=== PATIENT | male | born 1965 | race Caucasian/White ===

== ENCOUNTER → 2017-07-31 17:23 | Outpatient (CLI) | payer MEDICARE, MEDICAID ==
[~2017-07-31 17:23] MED LIST: BACLOFEN20 M1 PO; ELIQUIS2.5 MG PO; HYDROCODONE-APA1 TAB PO; LIPITOR10 MG PO; OMEPRAZOLE40 MG PO
[2017-08-25 12:56] VITALS: BMI 26.6
== END | disposition home or self-care (01) ==
LOC: D.LABREF 17:23
DX: Z11.8 Encounter for screening for other infectious and parasitic diseases (principal)

== ENCOUNTER 2017-08-20 09:17 | Inpatient (IN) | payer MEDICARE, MEDICAID ==
[~2017-08-20] VITALS: Ht 172.7 cm; Wt 79.5 kg
--- NOTE | ~2017-08-20 | OP ---
PATIENT NAME: AILEEN BAUTISTA MEDICAL RECORD: [id number] :69 LOCATION:D[id number] ADMISSION DATE:08/25/17 SURGEON: FREDY CORONA MD DATE OF OPERATION: 08/25/2017 PREOPERATIVE DIAGNOSIS: Avascular necrosis of the right medial femoral condyle. POSTOPERATIVE DIAGNOSIS: Avascular necrosis of the right medial femoral condyle. PROCEDURE: Right total knee arthroplasty. SURGEON: Fredy Corona MD ANESTHESIA: General. INTRAOPERATIVE COMPLICATIONS: None. SUMMARY OF PATHOLOGIC FINDINGS: Unfortunately, the patient had avascular necrosis of the entire medial femoral condyle. It was too big for autograft or osteochondral allograft as it wrapped around to the posterior femoral condyle and was 10 mm deep at its greatest depth. IMPLANTS USED: Triathlon total knee arthroplasty system. Press fit size 6 distal femur, size 11 mm polyethylene insert, size 6 tibial baseplate. No patellar resurfacing was required. OPERATIVE SUMMARY IN DETAIL: After obtaining the appropriate preoperative orthopedic surgery consent as well as anesthetic consultation, evaluation, and clearance, the patient was brought to the operating room and placed on the operating table in supine position. After general laryngeal mask airway was administered, tourniquet was placed about the proximal aspect of the right lower extremity. Right lower extremity was then prepped and draped in routine sterile fashion. The leg was elevated and exsanguinated and tourniquet was inflated to 350 mmHg. Routine midline incision was taken down for paramedian arthrotomy. Patella was everted. Findings were noted. The large chondral flap was peeled away and the depths of the avascular necrosis was measured. At this point, decision made to carry on with total knee arthroplasty. Soft tissue excision was done in the usual fashion. Distal intramedullary guide hole was created for intramedullary guided cut. Distal femoral cuts were made at 10 mm of depth to try and cut away all of the area of avascular necrosis. At this point, the entire proximal tibia was visualized. Proximal tibial cut was made. Measurements were taken. Distal femoral chamfer cuts were made. Trials were put into place corresponding to the above-mentioned final implants. They were taken through range of motion and found to be stable in all planes. Final distal femoral preparation, proximal tibial preparations were made. The wound was copiously irrigated at this point and multiple points during the case. Implants were then put into place with good fit and fill, taken through range of motion and found to be stable in all planes. After final irrigation, Vitagel from [employer] was put into place and that is a PRP thrombin combination. Paramedian arthrotomy was closed with #2 Ethibond followed by #1 Vicryl, 2-0 Vicryl and skin nick. Sterile dressings were applied. The patient was awakened and taken to the recovery room in stable condition. All final needle and sponge counts were correct. OPERATIVE REPORT [id number] AILEEN BAUTISTA TRANSINT:[id number] Voice Confirmation ID: [id number] DOCUMENT ID: [id number] CJ OLIVEROS, FREDY REYNOLDS at 1526 CC: [id number] DICTATION DATE: 08/25/17 1138 NEWS AGENT: 08/25/17 1221 ADM IN [facility] [address] [place] [address]
[~2017-08-20 09:17] MED LIST changes: -ELIQUIS2.5 MG PO; -HYDROCODONE-APA1 TAB PO
[2017-08-20 11:58] LABS: APPEARANCE CLEAR (CLEAR); BASOPHILS 0.4 % (0-2); BILIRUBIN NEGATIVE (NEGATIVE); COLOR YELLOW (YELLOW); EOSINOPHILS 1.4 % (0-7); GLUCOSE NEGATIVE (NEGATIVE); HEMATOCRIT 43.8 % (42.0-54.0); HEMOGLOBIN 15.1 g/dL (13.5-17.5); IMMATURE GRANULOCYTES 0.2 % (0-5); KETONE NEGATIVE (NEGATIVE); LYMPHOCYTES 22.1 % (15-50); MCH 31.3 pg (26.0-34.0); MCHC 34.5 g/dL (31.0-37.0); MCV 90.9 fL (80.0-100.0); MEAN PLATELET VOLUME 10.6 fL (7.4-10.4); MONOCYTES 6.8 % (2-11); NEUTROPHILS 69.1 % (40-80); NITRITE NEGATIVE (NEGATIVE); PLATELET COUNT 377 10x3/uL (130-400); PROTEIN NEGATIVE (NEGATIVE); RBC 4.82 10x6/uL (4.20-6.10); RDW 12.8 % (11.5-14.5); UROBILINOGEN NORMAL (NORMAL); WBC 10.5 10x3/uL (4.8-10.8)
[2017-08-20 11:59] LABS: INR 0.98 (0.85-1.17); PROTIME 12.6 SECONDS (11.6-15.0)
[2017-08-20 12:06] LABS: CALC OSMOLALITY 279 mosm/kg (275-300); CARBON DIOXIDE 28.1 mmol/L (21.0-32.0); CHLORIDE - SERUM 102 mmol/L (98-107); CREATININE - SERUM 1.1 mg/dL (0.6-1.3); GLUCOSE 93 mg/dL (74-106); POTASSIUM - SERUM 3.8 mmol/L (3.5-5.1); SODIUM 139 mmol/L (136-145); UREA NITROGEN 18 mg/dL (7-18); eGFR NON AFRICAN AMERICAN 75 mL/min (90-120)
[2017-08-25] VITALS (11 sets, daily range): BP systolic 115–135; BP diastolic 66–90; Ht 172.7 cm; Wt 79.5 kg
[2017-08-26 05:18] VITALS: BP 124/84
[2017-08-26 05:20] LABS: HEMATOCRIT 39.7 % (42.0-54.0); HEMOGLOBIN 13.5 g/dL (13.5-17.5); MCH 30.5 pg (26.0-34.0); MCV 89.8 fL (80.0-100.0); RBC 4.42 10x6/uL (4.20-6.10); RDW 13.2 % (11.5-14.5); WBC 19.2 10x3/uL (4.8-10.8)
[2017-08-26 08:55] VITALS: BP 127/76
[2017-08-26 12:48] VITALS: BP 123/78
[2017-08-26 21:26] VITALS: BP 120/75
[2017-08-27 04:47] VITALS: BP 138/74
[2017-08-27 05:57] LABS: HEMATOCRIT 39.5 % (42.0-54.0); HEMOGLOBIN 13.4 g/dL (13.5-17.5); MCH 30.7 pg (26.0-34.0); MCHC 33.9 g/dL (31.0-37.0); MCV 90.6 fL (80.0-100.0); MEAN PLATELET VOLUME 11.3 fL (7.4-10.4); RBC 4.36 10x6/uL (4.20-6.10); RDW 13.5 % (11.5-14.5); WBC 15.8 10x3/uL (4.8-10.8)
[2017-08-27 08:03] VITALS: BP 129/88
[2017-08-27 12:35] VITALS: BP 141/83
[2017-08-27 15:56] VITALS: BP 130/82
[2017-08-27 21:41] VITALS: BP 121/76
[2017-08-28 02:35] VITALS: BP 121/77
[2017-08-28 06:20] VITALS: BP 130/76
[2017-08-28] MEDS ORDERED: ELIQUIS2.5 MG PO (07:24)
[2017-08-28] MEDS ORDERED: HYDROCODONE-APA1 TAB PO (07:24)
[2017-08-28 09:07] VITALS: BP 116/78
== END 2017-08-28 10:20 | DRG 470 ==
LOC: D.SDCHOLD 09:17 → D.MS 08-25 07:00 → D.SDCHOLD 08-25 09:45 → D.MS 08-25 12:22
PROVIDERS: Orthopaedic Surgery
PROC: 0SRC0JA Replacement of Right Knee Joint with Synthetic Substitute, Uncemented, Open Approach (ICD-10-PCS; principal; 2017-08-25 09:45)
DX: M87.9 Osteonecrosis, unspecified (principal); M21.961 Unspecified acquired deformity of right lower leg; F17.200 Nicotine dependence, unspecified, uncomplicated

== ENCOUNTER → 2020-01-19 09:11 | Outpatient (CLI) | payer MEDICARE, MEDICAID ==
[2017-08-25 12:56] VITALS: BMI 26.6
[~2020-01-19 09:11] MED LIST changes: +ELIQUIS2.5 MG PO; +HYDROCODONE-APA1 TAB PO
== END | disposition home or self-care (01) ==
LOC: D.HCCARDIO 09:11
PROVIDERS: ATTEND Internal Medicine Cardiovascular Disease
DX: I20.9 Angina pectoris, unspecified (principal)

== ENCOUNTER 2020-02-09 10:45 | Day surgery (SDC) | payer MEDICARE, MEDICAID ==
[~2020-02-09] VITALS: Ht 172.7 cm; Wt 79.9 kg
--- NOTE | ~2020-02-09 | HEMODYNAMI ---
PATIENT:AILEEN BAUTISTA MEDICAL RECORD: [id number] : 69 LOCATION:[facility]VE ADMISSION DATE: 02/09/20 Generatedon:02/09/202013:08 Patient name: AILEEN BAUTISTA Patient #: [id number] SSN: [id number] : 1965 Date of study: 02/09/2020 Page: Of Hemodynamic Procedure Report Patient Data Patient Demographics First Name: AILEEN Gender: Male Last Name: MICHELE : 1965 Middle Initial: A Age: 54 year(s) Patient #: [id number] Race: SSN: [id number] Additional ID: [id number] Contact details Address: [address] [place] [address] State: [place] City: [place] Zip code: [address] Past Medical History Allergies: No known allergies Admission Admission Data Admission Date: 02/09/2020 Admission Time: 10:45 Arrival Date: 02/09/2020 Arrival Time: 0:00 Height (in.): 68.11 BSA: 1.94 (m2) Height (cm.): 173 BMI: 26.73 (kg/m2) Weight (lbs.): 176.37 Weight (kg.): 80 Lab Results Lab Result Date: 02/09/2020 Lab Result Time: 0:00 Biochemistry Name Units Result Min Max BUN mg/dl 18 --(---*)-- 7 18 Creatinine mg/dl 1 --(--*-)-- 0.6 1.3 eGFR ml/min 82.40334 -*(----)-- 90 120 NONAFRICAN CBC Name Units Result Min Max Hematocrit % 44.4 --(*---)-- 42 54 Hemoglobin g/dl 15.2 --(-*--)-- 13.5 17.5 Procedure Procedure Types Cath Procedure Diagnostic Procedure [facility] LH w/Coronaries Sedation Charges Moderate Sedation 10-24 minutes Procedure Description Procedure Date Procedure Date: 02/09/2020 Procedure Start Time: 12:52 Procedure End Time: 13:04 Procedure Staff Name Function Santino Jerome MD Performing Physician Barby Quintero RT Monitor Karyna Carver RT Scrub Enrique Buckner RN Nurse Indication Angina Procedure Data Cath Procedure Fluoroscopy Diagnostic fluoroscopy Total fluoroscopy Time: 1.6 time: 1.6 min min Diagnostic fluoroscopy Total fluoroscopy dose: 463 dose: 463 mGy mGy Contrast Material Contrast Material Type Amount (ml) Isovue 300 50 Entry Location Entry Primary Successful Side Size Upsize Upsize Entry Closure Peters ccessful Closure Location (Fr) 1 (Fr) 2 (Fr) Remarks Device Remarks Radial Right 6 Fr Mechanical artery Short Compression Estimated blood loss: 5 ml Diagnostic catheters Device Type Used For End Catheter Placement DIAGNOSTIC [place] 110cm 5 Procedure Fr catheter ([id number]) Procedure Complications No complications Procedure Medications Medication Administration Route Dosage Oxygen etCO2 Nasal cannula 2 l/min Lidocaine 2% added to field 20 Heparin Flush Bag added to field 2 bags (1000units/500ml NS) 0.9% NaCl I.V. 100 ml/hr Versed I.V. 1 mg Fentanyl I.V. 50 mcg Versed I.V. 1 mg Fentanyl I.V. 50 mcg Radial Cocktail I.A. 1 syringe (Verapamil 2mg/Nitro 400mcg/Heparin 1500units) Versed I.V. 1 mg Hemodynamics Rest BSA: 1.94 (m2) HGB: 15.2 (g/dl) O2 Consumption: Estimated: 235.78 (ml/min) O2 Co nsumption indexed: Estimated:121.54 (ml/min/m) Heart Rate: 76 (bpm) Pressure Samples Time Site Value (mmHg) Purpose Heart Use Rate(bpm) 12:56 LV 110/-17,0 Snapshot 86 12:56 LV 105/1,-3 Snapshot 115 Gradients Valve Time Site Site Mean SEP/DFP Peak To Heart Use 1 2 (mmHg) (sec/min) Peak Rate (mmHg) (bpm) Aortic 12:56 LV AO 64 Snapshots Pre Cath Intra NCS Post Cath Vital Signs Time Heart Resp SPO2 etCO2 NIBP Rhythm Pain Sedation Rate (ipm) (%) (mmHg) (mmHg) Status Level (bpm) 12:40:59 76 13 92 35.3 116/66(89) NSR 0 (11) 10(A) , No pain 12:45:11 64 16 94 34.5 115/72(88) NSR 0 (11) 10(A) , No pain 12:49:23 66 16 95 34.5 113/73(83) NSR 0 (11) 9(A) , No pain 12:53:35 71 16 94 36 112/69(88) NSR 0 (11) 9(A) , No pain 12:58:38 72 15 93 31.5 103/67(92) NSR 0 (11) 9(A) , No pain 13:02:48 76 17 94 33.8 116/65(87) NSR 0 (11) 10(A) , No pain Medications Time Medication Route Dose Verified Delivered Reason Notes Effectiveness by by 12:40:25 Oxygen etCO2 2 l/min Santino Buffie used for Nasal Justus Buckner RN procedure cannula 12:42:10 Versed I.V. 1 mg Santino Buffie for sedation Justus Buckner RN 12:42:19 Fentanyl I.V. 50 mcg Santino Buffie for sedation Justus Buckner RN 12:43:31 Lidocaine 2% added 20ml Santino Santino for local to vial Justus Jerome MD anesthetic field 12:43:38 Heparin Flush added 2 bags Santino Santino used for Bag to Justus Jerome MD procedure (1000units/500ml field NS) 12:43:47 0.9% NaCl I.V. 100 Santino Buffie Per ml/hr Justus Buckner RN physician 12:47:51 Versed I.V. 1 mg Santino Buffie for sedation Justus Buckner RN 12:47:54 Fentanyl I.V. 50 mcg Santino Buffie for sedation Justus Buckner RN 12:56:05 Radial Cocktail I.A. 1 Santino Santino for (Verapamil syringe Justus Jerome MD vasodilation 2mg/Nitro 400mcg/Heparin 1500units) 12:56:19 Versed I.V. 1 mg Santino Santino for sedation Justus Jerome MD Procedure Log Time Note 12:07:55 Arrival Date: 02/09/2020 12:00:00 AM 12:07:59 Patient Height : 68.11 inches 12:08:04 Patient Weight : 176.37 lbs 12:10:55 Lab Result : Creatinine 1 mg/dl 12:10:55 Lab Result : BUN 18 mg/dl 12: Lab Result : eGFR NONAFRICAN 82.71780 ml/min 12: Lab Result : Hematocrit 44.4 % 12: Lab Result : Hemoglobin 15.2 g/dl 12:24:59 Enrique Buckner RN sent for patient. Start room use. 12:27:23 Procedure Status Elective Heart Cath (OP). 12:27:26 Time tracking: Regular hours (M-F 7:00 - 5:00) 12:28:43 Indication : Angina 12::54 Plan of Care:Hemodynamics will remain stable., Cardiac rhythm will remain stable., Comfort level will be maintained., Respiratory function will remain adequate., Patient/ family verbilizes understanding of procedure., Procedure tolerated without complication., Recovers from procedure without complications.. 12:29:35 Patient received from Pre/Post Procedure Room to CCL 1 Alert and oriented. Tansferred to table in Supine position. 12:29:38 Warm blankets applied, and salena hugger turned on for patient comfort. 12:29:39 Correct patient and procedure confirmed by team. 12:29:40 ECG and BP/O2 sat monitors applied to patient. 12:33:25 H&P Date Dictated: 01/11/2020 Within 30 days and on chart., H&P Addendum completed by physician on day of procedure. (MUST COMPLETE FOR ALL OUTPATIENTS). 12:33:27 Pre-procedure instructions explained to patient. 12:33:37 Family unavailable. 12:33:39 Patient NPO since Midnight. 12:33:50 Patient allergic to No known allergies 12:33:54 Is the patient allergic to Iodine/contrast media? No. 12:33:56 Was the patient premedicated? Yes 12:35:09 Patient diabetic? No. 12:35:13 Snore? Yes 12:35:15 Sleep apnea? Unknown 12:35:25 Dentures? No ? 12:35:30 Is patient on blood thinner?No 12:35:45 IV patent on arrival in left forearm with 0.9% NaCl at [facility]. 12:35:53 Lab results completed and on chart. 12:36:34 Stress Test: yes; abnormal anterior,apical,inferior 12:36:41 Right Radial & Right Groin area was prepped with chlora-prep and draped in sterile fashion 12:39:54 Vital chart was started 12:39:57 Baseline sample Acquired. 12:40:08 Rhythm: sinus rhythm 12:40:10 Full Disclosure recording started 12:40:25 Oxygen 2 l/min etCO2 Nasal cannula was administered by Enrique Buckner RN; used for procedure; Verbal order read back and verified. 12:40:30 Physician arrived 12:40:31 --------ALL STOP TIME OUT------ 12:40:34 Final Timeout: patient, procedure, and site verified with staff and physician. All members of the team are in agreement. 12:40:37 Right Radial & Right Groin site verified by team. 12:40:42 Fire Safety Assessment: A--An alcohol-based skin anteseptic being used preoperatively., C--Open oxygen or nitrous oxide is being used., D--An ESU, laser, or fiber-optic light is being used. 12:42:10 Versed 1 mg I.V. was administered by Enrique Buckner RN; for sedation; Verbal order read back and verified. 12:42:19 Fentanyl 50 mcg I.V. was administered by Enrique Buckner RN; for sedation; Verbal order read back and verified. 12:42:24 Medline Cath Pack ([id number]) opened to sterile field. 12:43:31 Lidocaine 2% 20ml vial added to field was administered by Santino Jerome MD; for local anesthetic; Verbal order read back and verified. 12:43:38 Heparin Flush Bag (1000units/500ml NS) 2 bags added to field was administered by Santino Jerome MD; used for procedure; Verbal order read back and verified. 12:43:47 0.9% NaCl 100 ml/hr I.V. was administered by Enrique Buckner RN; Per physician; Verbal order read back and verified. 12:45:46 Physical assessment completed. ASA score P 2 - A patient with mild systemic disease as per Santino Jerome MD. 12:46:41 2) 60-89 Mildly reduced kidney function, and other findings (as for stage 1) point to kidney disease. 12:46:45 Maximum allowable contrast dose (3.7 X eGFR X 0.75)230 ml. 12:46:52 Sedation plan: IV Moderate Sedation Medication:Versed, Fentanyl 12:47:20 Use device set Radial Dx or PCI 12:47:23 ACIST Syringe (85499) opened to sterile field. 12:47:25 Bag Decanter (2001S) opened to sterile field. 12:47:26 ACIST Hand Control (84687) opened to sterile field. 12:47:26 ACIST Manifold (02315) opened to sterile field. 12:47:27 Tegaderm 4 x 4 (1626W) opened to sterile field. 12:47:33 MBrace Wrist Support (010137337) opened to sterile field. 12:47:35 SHEATH 6FR RAIN (9527552) opened to sterile field. 12:47:38 EMERALD Guide Wire (014-507) opened to sterile field. 12:47:51 Versed 1 mg I.V. was administered by Enrique Buckner RN; for sedation; Verbal order read back and verified. 12:47:54 Fentanyl 50 mcg I.V. was administered by Enrique Buckner RN; for sedation; Verbal order read back and verified. 12:52:25 Procedure started. 12:52:45 Local anesthetic to right radial artery with Lidocaine 2% by Santino Jerome MD.INITIAL ACCESS ONLY 12:53:27 A 6 Fr Short sheath was inserted into the Right Radial artery 12:54:59 A DIAGNOSTIC [place] 110cm 5 Fr catheter (575808) was advanced over the wire and used for Procedure. 12:55:51 LV angiography performed. 12:56:05 Radial Cocktail (Verapamil 2mg/Nitro 400mcg/Heparin 1500units) 1 syringe I.A. was administered by Santino Jerome MD; for vasodilation; Verbal order read back and verified. 12:56:19 Versed 1 mg I.V. was administered by Santino Jerome MD; for sedation; Verbal order read back and verified. 12:56:34 EF : 55 % 12:57:47 LCA angiography performed. 12:59:30 RCA angiography performed. 13:01:02 Catheter removed. 13:01:06 ZEPHYR REGULAR TR BAND (313480) opened to sterile field. 13:02:11 Sheath removed intact; hemostasis achieved with Mechanical Compression to the Right Radial artery. 13:02:13 Procedure ended.(Physican Out) 13:02:25 Fluoroscopy time 01.60 minutes. 13:02:31 Fluoroscopy dose: 463 mGy 13:02:31 Flurop Dose total: 463 13:02:35 Dose Area Product 75669 mGy/cm. 13:02:43 Contrast amount:Isovue 300 50ml. 13:02:47 Maximum allowable dose exceeded? No. 13:02:49 Sharps counted by scrub and verified by R.N. 13:02:56 [place] band inflated with 10cc of air. 13:02:58 Insertion/operative site no bleeding no hematoma. 13:03:01 Post Procedure Pulses reassessed and unchanged 13:03:06 Post-procedure physical assessment completed. ASA score P 2 - A patient with mild systemic disease as per Santino Jerome MD. 13:03:09 Post procedure rhythm: unchanged. 13:03:11 Estimated blood loss: 5 ml 13:03:15 Post procedure instruction explained to patient.Patient verbalizes understanding. 13:03:43 Procedure type changed to Cath procedure, Diagnostic procedure, LHC, C w/Coronaries, Sedation Charges, Moderate Sedation 10-24 minutes 13:03:46 Procedure and supply charges have been captured, reviewed, submitted and are correct. 13:04:11 Procedure Complication : No complications 13:04:15 Vital chart was stopped 13:04:21 [facility] Findings: mild to moderate CAD (<70%) 13:04:25 See physician's report for complete and final results. 13:04:28 Report given to Pre/Post Procedure Room. 13:04:30 Patient transfered to Pre/Post Procedure Room with Stretcher. 13:04:32 Procedure ended. 13:04:32 Full Disclosure recording stopped 13:04:35 End room use (Document Last) 13:07:09 End room use (Document Last) 13:07:50 End room use (Document Last) Device Usage Item Name Manufacture Quantity Catalog Hospital Part Current Minima l Lot# / Number Charge Number Stock Stock Serial# Code ACIST Acist 1 55658 349364 [id number] [id number] 20 Syringe Medical (17081) Systems Inc Medline Medline 1 [id number] 16458 826360 5 Cath Pack ([id number]) Bag Microtek 1 803638 65814 566107 5 Decanter Medical Inc. () ACIST Hand Acist 1 03190 177115 240894 474936 5 Control Medical (91027) Systems Inc ACIST Acist 1 58211 742078 068871 407480 5 Manifold Medical (75405) Systems Inc Tegaderm 4 3M 1 1626W 690499 997179 417605 5 x 4 (1626W) MBrace Advanced 1 140-0250-00 812351 35502 066206 5 Wrist Vascular Support Dynamics ([id number]) SHEATH 6FR Cardinal 1 0467479 435693 6482499 424709 5 RAIN Health (3973216) EMERALD Cardinal 1 078-057 554847 921321 727071 5 Guide Wire Health (390-960) DIAGNOSTIC Terumo 1 77-1031 505545 370243 032161 5 [place] 110cm 5 Fr catheter (347597) ZEPHYR Cardinal 1 610259 942124 6403028 163973 5 REGULAR TR Health BAND (557405) Signature Audit [place] Stage Time Signature Unsigned Intra-Procedure 02/09/2020 Karyna Carver 1:07:09 PM RT(R) Intra-Procedure 02/09/2020 Enrique Buckner RN 1:07:50 PM Intra-Procedure 02/09/2020 Santino Jerome MD 1:08:13 PM [facility] [address] [place] [address]
[2020-02-09] MEDS ORDERED: ASPIRIN325 MG PO (11:17)
[2020-02-09] MEDS ORDERED: CENTRUM MEN'S1 EACH PO (11:17)
[2020-02-09 11:28] VITALS: BP 130/85; Ht 172.7 cm; Wt 79.9 kg
[2020-02-09 11:41] LABS: BASOPHILS 0.4 % (0-2); EOSINOPHILS 2.5 % (0-7); HEMATOCRIT 44.4 % (42.0-54.0); HEMOGLOBIN 15.2 g/dL (13.5-17.5); IMMATURE GRANULOCYTES 0.3 % (0-5); LYMPHOCYTES 27.5 % (15-50); MCH 31.1 pg (26.0-34.0); MCHC 34.2 g/dL (31.0-37.0); MEAN PLATELET VOLUME 9.5 fL (7.4-10.4); MONOCYTES 11.2 % (2-11); NEUTROPHILS 58.1 % (40-80); PLATELET COUNT 305 10x3/uL (130-400); RBC 4.88 10x6/uL (4.20-6.10); RDW 12.9 % (11.5-14.5); WBC 9.4 10x3/uL (4.8-10.8)
[2020-02-09 11:57] LABS: ALT (SGPT) 37 U/L (10-68); CALC OSMOLALITY 279 mosm/kg (275-300); CALCIUM 9.2 mg/dL (8.5-10.1); CARBON DIOXIDE 25.1 mmol/L (21.0-32.0); CHLORIDE - SERUM 105 mmol/L (98-107); CHOL - HDL RATIO 3.2 ratio (2.3-4.9); CHOLESTEROL, TOTAL 194 mg/dL (0-200); GLUCOSE 103 mg/dL (74-106); HDL CHOLESTEROL 60 mg/dL (32-96); LDL CHOLESTEROL 104 mg/dL (0-100); LDL-HDL RATIO 1.7 ratio (1.5-3.5); POTASSIUM - SERUM 4.3 mmol/L (3.5-5.1); SODIUM 139 mmol/L (136-145); TRIGLYCERIDE 151 mg/dL (30-200); UREA NITROGEN 18 mg/dL (7-18); eGFR NON AFRICAN AMERICAN 83 mL/min (90-120)
--- NOTE | 2020-02-09 13:15 | NUR ---
PT REC'D TO ROOM 3 VIA STRETCHER FROM CORNER BEAD OPERATOR. MONITORS ESTAB. NO FAMILY AT BS. SEE DIRECTOR ENVIRONMENTAL, ALARMS ON AND C/L IN REACH.
--- NOTE | 2020-02-09 13:30 | NUR ---
R WRIST SITE C/D/I, NO S/S BLEEDING OR HEMATOMA. R ARM/HAND WARM WITH PALP PULSES AND BRISK CAP REFILL. VSS. PT RESTING QUIETLY. ALARMS ON AND C/L IN REACH.
--- NOTE | 2020-02-09 14:00 | NUR ---
R WRIST SITE C/D/I, NO S/S BLEEDING OR HEMATOMA. R ARM/HAND WARM WITH PALP PULSES AND BRISK CAP REFILL. PT RESTING QUIETLY, DENIES PAIN OR NEEDS. ALARMS ON AND C/L IN REACH.
--- NOTE | 2020-02-09 14:15 | NUR ---
5CC AIR REMOVED FROM Z BAND PER PROTOCOL - NO S/S BLEEDING OR HEMATOMA. PULSES PALP. WILL CONT CLOSE MONITORING.. VSS. C/L IN REACH. PT FATHER IS HERE IN WAITING ROOM, PLAN FOR PT D/C AT 1500
--- NOTE | 2020-02-09 14:30 | NUR ---
TOTAL 7CC AIR REMOVED FROM Z BAND, NO S/S BLEEDING OR HEMATOMA. PULSES PALP. VSS. C/L IN REACH.
--- NOTE | 2020-02-09 14:40 | NUR ---
ALL AIR REMOVED FROM Z BAND, NO S/S BLEEDING OR HEMATOMA. PULSES PALP. VSS. PT DENIES PAIN OR NEEDS. C/L IN REACH.
--- NOTE | 2020-02-09 14:50 | NUR ---
R WRIST SITE C/D/I. PIV D/C'D INTACT, DSG APPLIED. PT ALLOWED UP TO GET DRESSED AND GO TO BR INDEPENDENTLY.
--- NOTE | 2020-02-09 14:55 | NUR ---
ALL DISCHARGE INSTRUCTIONS REVIEWED WITH PT, INCLUDING MEDS, RESTRICTIONS AND F/U APPT. PT VERBALIZES UNDERSTANDING. R Z BAND OFF, DSG AND ARM BOARD APPLIED.
--- NOTE | 2020-02-09 15:00 | NUR ---
PT D/C'D VIA WC TO PRIVATE VEHICLE WITH FATHER. PT HAS ALL BELONGINGS AND PAPERWORK.
== END 2020-02-09 15:00 | disposition home or self-care (01) ==
LOC: D.CATH 10:45
PROVIDERS: ATTEND Internal Medicine Cardiovascular Disease
DX: I20.9 Angina pectoris, unspecified (principal); R94.39 Abnormal result of other cardiovascular function study; E78.5 Hyperlipidemia, unspecified